=== PATIENT | female | born 1990 | race Hispanic/Latino ===

== ENCOUNTER 2017-07-16 11:56 | Outpatient (CLI) | payer MEDICAID ==
[2017-07-16 13:50] VITALS: BP 106/65
[2017-07-16] MEDS ORDERED: TYLENOL #3 PO ONE (16:15)
--- NOTE | 2017-07-16 17:22 | Ultrasound Report ---
FINAL REPORT EXAM: US OB LIMITED HISTORY: ASHWINI, POSITION, PLACENTA SCAN TECHNIQUE: Obstetrical sonographic imaging Comparison: None FINDINGS: Sonographic imaging demonstrates single live intrauterine gestation in cephalic presentation. Fundal grade 1 placenta. heart rate measures 141 beats per minute. Calculated ASHWINI 15.1 centimeters. IMPRESSION: Single live intrauterine gestation in cephalic presentation. Fundal grade 1 placenta. No definite subchorionic hemorrhage. heart rate measures 141 beats per minute. Calculated ASHWINI 15.1 centimeters. Biophysical profile score is recorded separately.
--- NOTE | 2017-07-16 17:28 | Ultrasound Report ---
FINAL REPORT PROCEDURE: US OB BPP WO NON-STRESS TECHNIQUE: Sonographic evaluation for breathing, movement, tone, and amniotic fluid volume was performed. CPT 58714 HISTORY: Evaluate well-being. COMPARISON: No prior studies are available for comparison. FINDINGS: Amniotic fluid volume: Normal-score 2. At least one vertical pocket > 2 cm or more in vertical axis.. Normal amniotic fluid index measuring 15.1 centimeter. breathing: Normal-score 2. movement: Normal-score 2. tone: Normal. Score: 8 of 8. heart rate of 141 beats per minute is detected. Fetus currently in the vertex presentation. Detailed exam of the anatomy was not performed today. IMPRESSION: Single living intrauterine gestation visualized vertex presentation. Subjectively and by amniotic fluid volume the amount of amniotic fluid appears normal. Biophysical profile score 8/8.
== END 2017-07-16 17:25 | disposition home or self-care (01) ==
LOC: TRG 11:56
PROVIDERS: ATTEND Obstetrics & Gynecology
DX: Z34.93 Encounter for supervision of normal pregnancy, unspecified, third trimester (principal); Z3A.37 37 weeks gestation of pregnancy
CPT/HCPCS: 59025; 76815; 76819

== ENCOUNTER 2017-07-18 18:31 | Outpatient (CLI) | payer MEDICAID ==
[2017-07-18 19:27] VITALS: BP 105/65
--- NOTE | 2017-07-18 21:48 | Ultrasound Report ---
FINAL REPORT PROCEDURE: US OB BPP WO NON-STRESS TECHNIQUE: Sonographic evaluation for breathing, movement, tone, and amniotic fluid volume was performed. CPT 53410 HISTORY: well being COMPARISON: No prior studies are available for comparison. FINDINGS: Amniotic fluid volume: Normal-score 2. At least one vertical pocket > 2 cm or more in vertical axis. breathing: Normal-score 2. movement: Normal-score 2. tone: Normal. Score: 8 of 8. heart rate of 141 beats per minute is detected. IMPRESSION: Normal biophysical profile. Biophysical profile score 8/8.
== END 2017-07-18 23:20 | disposition home or self-care (01) ==
LOC: TRG 18:31 → LD 18:32 → TRG 23:20
PROVIDERS: ATTEND Obstetrics & Gynecology
DX: O47.1 False labor at or after 37 completed weeks of gestation (principal); Z3A.37 37 weeks gestation of pregnancy
CPT/HCPCS: 76819

== ENCOUNTER 2017-07-23 11:08 | Inpatient (IN) | payer MEDICAID ==
[2017-07-23] MEDS ORDERED: LACTATED RINGERS 1,000 ML IV SCH ×2 (12:00→15:00)
[2017-07-23 12:17] LABS: Basophils % (Auto) 0.4 % (0.0-1.8); Eosinophils # (Auto) 0.1 K/mm3 (0.0-0.4); Eosinophils % (Auto) 1.6 % (0.0-4.3); Hemoglobin 11.4 gm/dl (10.1-14.3); Lymphocytes # (Auto) 1.2 K/mm3 (1.2-5.4); Lymphocytes % (Auto) 13.7 % (13.4-35.0); Mean Corpuscular HGB Conc 34 % (30-34); Mean Corpuscular Hemoglobin 27 pg (28-32); Mean Corpuscular Volume 82 fl (79-97); Monocytes # (Auto) 0.5 K/mm3 (0.0-0.8); Monocytes % (Auto) 6.1 % (0.0-7.3); Platelet Count 174 K/mm3 (140-440); Red Blood Count 4.18 M/mm3 (3.65-5.03); Red Cell Distribution Width 14.6 % (13.2-15.2)
--- NOTE | 2017-07-23 14:20 | History and Physical Report ---
History of Present Illness Date of examination: 07/23/17 Date of admission: 07/23/17 11:57 Chief complaint: I'm having pressure History of present illness: patient is a 27 year old who presents to L&D with complaint of active contractions. She has had an uncomplicated course except for persistent nausea and vomiting throughout the . Past History Past Medical History: other (anxiety ) Past Surgical History: no surgical history Family/Genetic History: none Social history: - Obstetrical History Expected Date of Delivery: 08/02/17 Actual Gestation: 38 Week(s) 4 Day(s) : 4 Para: 3 Number of Living Children: 3 Medications and Allergies Allergies Allergy/AdvReac Type Severity Reaction Status Date / Time clarithromycin [From Biaxin] Allergy Intermediate Hives Verified 12/18/15 07:57 Penicillins Allergy Unknown Verified 12/18/15 07:57 ondansetron HCl [From Zofran] AdvReac Nausea Verified 12/18/15 07:57 Home Medications Medication Instructions Recorded Confirmed Last Taken Type Pnv No.103/Folic/Om3s/Fish Oil 1 each PO DAILY 10/06/15 12/19/15 12/18/15 06:00 History [ Gummies] Active Meds: Active Medications Lactated Ringer's (Lactated Ringers) 1,000 mls @ 125 mls/hr IV DIRECT UYEN Last Admin: 07/23/17 12:45 Dose: 125 mls/hr Influenza Virus Vaccine Quadrival (Fluarix Quad [id number](36 Mos+) 0.5 ml IM .ONCE ONE Stop: 07/24/17 12:01 Review of Systems All systems: negative Gastrointestinal: vomiting Genitourinary: contractions, other (vaginal pressure) - Vital Signs Vital signs: Vital Signs Pulse BP 76 114/73 07/23/17 11:21 07/23/17 11:21 Temp Pulse Resp BP Pulse Ox 97.9 F 84 18 116/72 100 07/23/17 12:06 07/23/17 12:09 07/23/17 12:06 07/23/17 12:08 07/23/17 12:09 - Physical Exam Breasts: Cardiovascular: Regular rate, Normal S1, Normal S2 Lungs: Positive: Clear to auscultation, Normal air movement Abdomen: Positive: normal appearance, soft, normal bowel sounds. Negative: distention, tenderness Genitourinary (Female): Positive: normal external genitalia, normal perenium Vulva: both: normal Vagina: Positive: normal moisture. Negative: discharge Cervix: Negative: lesion, discharge Uterus: Positive: normal size, normal contour Adnexa: both: normal Anus/Rectum: Positive: normal perianal skin, heme negative. Negative: rectal mass, hemorrhoids Extremities: Deep Tendon Reflex Grade: Normal +2 - Obstetrical FHR: auscultation normal Cervical Dilatation: 6 Cervical Effacement Percentage: 90 station: +2 Uterine Contraction Pattern: Irregular Uterine Tone Measurement Phase: Contraction Results Result Diagrams: 07/23/17 11:25 Abnormal lab results 07/23/17 Range/Units 11:25 MCH 27 L (28-32) pg Seg Neutrophils % 78.2 H (40.0-70.0) % All other labs normal. Assessment and Plan Patient here in active labor. Admit for management. AROM when able. Anticipate .
[2017-07-23] MEDS ORDERED: ePHEDrine SULFATE IV PRN (14:31)
[2017-07-23] MEDS ORDERED: BRETHINE SUB-Q PRN (14:31)
[2017-07-23] MEDS ORDERED: STADOL IV PRN (14:31)
[2017-07-23] MEDS ORDERED: BRETHINE IVP PRN (14:31)
[2017-07-23] MEDS ORDERED: PITOCin/NS 20 UNIT/1000ML DRIP 20 UNITS/1,000 ML BAG IV SCH (15:00)
[2017-07-23] MEDS ORDERED: PITOCin/NS 30 UNIT/500ML 30 UNITS/500 ML BAG IV SCH (15:00)
--- NOTE | 2017-07-23 15:07 | Procedure Note ---
OB Delivery Note - Delivery Date of Delivery: 07/23/17 Surgeon: TNOY HERNÁNDEZ - Vaginal Delivery presentation: vertex Delivery position: OA Intrapartum events: none - A at 1 minute: 9 at 5 minutes: 9 Gender: Male (7 pounds 1 ounce)
[2017-07-23] MEDS ORDERED: XYLOCAINE 2% INFILTRATI ONE (16:00)
[2017-07-23] MEDS ORDERED: NORCO 5/325 PO PRN (18:22)
[2017-07-23] MEDS ORDERED: TUCKS PAD TP PRN (18:22)
[2017-07-23] MEDS ORDERED: MILK OF MAGNESIA PO PRN (18:22)
[2017-07-23] MEDS ORDERED: TYLENOL PO PRN (18:22)
[2017-07-23] MEDS ORDERED: DULCOLAX PR PRN (18:22)
[2017-07-23] MEDS ORDERED: LANSINOH TP PRN (18:22)
[2017-07-23] MEDS ORDERED: SODIUM CHLORIDE FLUSH SYRINGE 10 ML IV NR (18:22)
[2017-07-23] MEDS ORDERED: BENADRYL PO PRN (18:22)
[2017-07-23] MEDS ORDERED: PHENERGAN PO PRN (18:22)
[2017-07-23] MEDS ORDERED: PHENERGAN PR PRN (18:22)
[2017-07-23] MEDS: MOTRIN PO SCH (19:55)
[2017-07-23] MEDS ORDERED: MINERAL OIL PO PRN (22:00)
[2017-07-23] MEDS: COLACE PO SCH (23:02)
[2017-07-23] MEDS: SENOKOT S PO SCH (23:16)
[2017-07-24] MEDS: MOTRIN PO SCH ×2 (02:03→12:05)
[2017-07-24] MEDS ORDERED: PITOCin/NS 20 UNIT/1000ML DRIP 20,000 MILLIUNITS/1,000 ML BAG IV ONE (03:28)
[2017-07-24] MEDS ORDERED: PRENATAL VITAMIN PO SCH (10:00)
[2017-07-24] MEDS ORDERED: Fluarix Quad 2017-2018(36 MOS+ IM ONE (12:00)
[2017-07-24] MEDS: COLACE PO SCH (12:02)
[2017-07-24] MEDS: SENOKOT S PO SCH (12:05)
--- NOTE | 2017-07-24 15:49 | Progress Note ---
Assessment and Plan ppd 1 s/p . Doing well. Patient planning to go home on today Subjective - Subjective Date of service: 07/24/17 Interval history: patient is a 27 year old who presents to L&D with complaint of active contractions. She has had an uncomplicated course except for persistent nausea and vomiting throughout the . Patient reports: appetite normal, voiding normally, pain well controlled, ambulating normally Margie: doing well Objective - Vital Signs Latest vital signs: Vital Signs Temp Pulse Resp BP BP Pulse Ox 07/24/17 12:13 97.8 F 79 18 99/68 97 07/24/17 09:01 98.5 F 79 18 106/61 95 07/24/17 00:45 97.7 F 84 18 116/64 97 07/23/17 20:35 97.6 F 77 18 114/68 99 07/23/17 18:05 97.4 F L 71 20 113/68 07/23/17 17:05 78 18 109/67 07/23/17 16:58 78 109/67 07/23/17 16:50 82 18 109/66 07/23/17 16:43 82 109/66 07/23/17 16:28 96 H 112/63 07/23/17 16:25 96 H 18 112/63 07/23/17 16:15 76 120/64 07/23/17 16:10 98.3 F 76 18 120/64 Intake and Output 07/24/17 07/24/17 07/24/17 06:59 14:59 22:59 Intake Total 240 Balance 240 Intake: Oral 240 Other: Total, Intake Amount 120 # Voids Void 1 - Exam Breasts: Present: deferred Cardiovascular: Present: Regular rate, Normal S1, Normal S2 Lungs: Present: Clear to auscultation, Normal air movement Abdomen: Present: normal appearance, soft, normal bowel sounds Uterus: Present: normal, firm Extremities: Present: normal
--- NOTE | 2017-07-24 15:50 | Discharge Summary ---
Providers - Providers Date of Admission: 07/23/17 11:57 Date of discharge: 07/24/17 Attending physician: TONY HERNÁNDEZ Primary care physician: TONY HERNÁNDEZ Hospitalization Reason for admission: active labor Delivery: Episiotomy: none Laceration: none complications: none [place] baby: male Condition at discharge: Good Disposition: DC-01 TO HOME OR SELFCARE Plan - Provider Discharge Summary Activity: routine, no sex for 6 weeks, no heavy lifting 4 weeks Diet: routine Instructions: routine Additional instructions: [] Smoking cessation referral if applicable(refer to patient education folder for contact #) [] Refer to [facility]'s [facility] Booklet Call your doctor immediately for: * Fever > 100.5 * Heavy vaginal bleeding ( >1 pad per hour) * Severe persistent headache * Shortness of breath * Reddened, hot, painful area to leg or breast * Drainage or odor from incision. * Keep incision clean and dry at all times and follow doctor's instructions regarding bathing/showering - Follow up plan Follow up: TONY HERNÁNDEZ MD [Primary Care Provider] - 6 Weeks
[2017-07-24 16:13] VITALS: BP 108/64
[2017-07-24] MEDS ORDERED: TENIVAC IM ONE (18:00)
== END 2017-07-24 19:15 | disposition home or self-care (01) | DRG 775 ==
LOC: TRG 11:08 → LD 11:57 → OB 18:28
PROVIDERS: ADMIT Obstetrics & Gynecology; ATTEND Obstetrics & Gynecology
PROC: 10E0XZZ Delivery of Products of Conception, External Approach (ICD-10-PCS; principal; 2017-07-23)
PROC: 3E0234Z Introduction of Serum, Toxoid and Vaccine into Muscle, Percutaneous Approach (ICD-10-PCS; 2017-07-23)
DX: O21.9 Vomiting of pregnancy, unspecified (principal); Z3A.38 38 weeks gestation of pregnancy; Z37.0 Single live birth; Z23 Encounter for immunization; Z88.0 Allergy status to penicillin; Z88.8 Allergy status to other drugs, medicaments and biological substances
CPT/HCPCS: 36415; 85025; 86592; 86850; 86900; 86901; 90686; 90714; 99211; G0463; J0595; J2590; J7120

== ENCOUNTER 2021-01-04 17:28 | Outpatient (CLI) | payer MEDICAID ==
[2021-01-04 18:22] VITALS: BP 110/63
== END 2021-01-04 19:03 | disposition home or self-care (01) ==
LOC: APU 17:28 → TRG 17:28
PROVIDERS: ATTEND Obstetrics & Gynecology
DX: Z34.93 Encounter for supervision of normal pregnancy, unspecified, third trimester (principal); Z3A.32 32 weeks gestation of pregnancy
CPT/HCPCS: 59025

== ENCOUNTER 2021-01-24 11:40 | Outpatient (CLI) | payer MEDICAID ==
[2021-01-24 12:10] VITALS: BP 116/68
--- NOTE | 2021-01-24 14:19 | Ultrasound Report ---
ULTRASOUND BIOPHYSICAL PROFILE INDICATION: well-being. COMPARISON: None available. FINDINGS: breathing movement = 2 Gross body movement = 2 tone = 2 Qualitative amniotic fluid volume = 2 Total biophysical score = /8 Presentation is Cephalic. heart rate is 130 beats per minute. IMPRESSION: biophysical profile = 02/25 Signer Name: Jake Agarwal MD Signed: 01/24/2021 2:15 PM Workstation Name: [id number]
== END 2021-01-24 15:38 | disposition home or self-care (01) ==
LOC: TRG 11:40 → APU 11:43 → TRG 15:38
PROVIDERS: ATTEND Obstetrics & Gynecology
DX: O47.03 False labor before 37 completed weeks of gestation, third trimester (principal); Z3A.35 35 weeks gestation of pregnancy
CPT/HCPCS: 76819

== ENCOUNTER 2021-02-02 16:51 | Outpatient (CLI) | payer MEDICAID ==
[2021-02-02 19:02] VITALS: BP 103/66
[2021-02-02] MEDS ORDERED: LACTATED RINGERS 500 ML IV ONE (20:12)
== END 2021-02-02 19:19 | disposition home or self-care (01) ==
LOC: TRG 16:51 → LD 16:54 → TRG 19:19
PROVIDERS: ATTEND Obstetrics & Gynecology
DX: Z34.93 Encounter for supervision of normal pregnancy, unspecified, third trimester (principal); Z3A.36 36 weeks gestation of pregnancy
CPT/HCPCS: 59025

== ENCOUNTER 2021-02-23 19:05 | Outpatient (CLI) | payer MEDICAID ==
[2021-02-23 20:08] VITALS: BP 103/62
== END 2021-02-24 01:05 | disposition home or self-care (01) ==
LOC: TRG 19:05 → APU 19:08 → TRG 02-24 01:05
PROVIDERS: ATTEND Obstetrics & Gynecology
DX: Z34.93 Encounter for supervision of normal pregnancy, unspecified, third trimester (principal); Z3A.39 39 weeks gestation of pregnancy
CPT/HCPCS: 59025